=== PATIENT | male | born 1950 | race Caucasian/White ===

== ENCOUNTER → 2017-11-26 | Day surgery (SDC) | payer MEDICARE, OTHER ==
[~2017-11-26] VITALS: Ht 175.3 cm; Wt 87.6 kg
[~2017-11-26] MED LIST: ACETAMINOPHEN 500 MG CPLT PO PRN; ALLO100T PO; AMBI10TA PO; AMLO10TA2 PO; ATROPINE SULFATE 1% OPHT SOLN 5 ML BTL ONE; CHLORHEXIDINE GLUCONATE 2 % 1 PACK (2 CLOTHS) TOPICAL PRN; CYCLOPENTOLATE HCL 1% OPHT SOLN 2 ML BTL ONE; DEXAMETHASONE SOD PHOS 4 MG/ML VIAL ONE; DO NOT ADM ANY ANTICOAGULANT DRUGS PRN; EPINEPHrine HCL (1:1000) 1 MG/ML VIAL ONE; FAMOTIDINE 20 MG/2 ML VIAL ONE; FLUT50SP EACH NARE; GLYCOPYRROLATE 1 MG/5 ML SYRINGE IV PUSH ONE; INDO25CA PO; LACTATED RINGER'S 1000 ML IV PRN; LIDOCAINE HCL 1% PF 5 ML SYRINGE OTHER ONE; METO1TAB9 PO; METOPROLOL TARTRATE 25 MG TAB PO PRN; METOPROLOL TARTRATE 5 MG/5 ML VIAL ONE; MONT10TA4 PO; NEOSTIGMINE 5 MG/5 ML SYRINGE IV PUSH ONE; OMEP20TA93 PO; ONDANSETRON HCL 4 MG/2 ML VIAL IV ONE; POVIDONE IODINE 5% (ANTISEPSIS KIT) 4 APPLICATIONS EACH NARE PRN; PROPOFOL 200 MG/20 ML AMP IV ONE; ROCURONIUM INJ 50 MG/5 ML SYRINGE IV PUSH ONE; ROSU20 PO; SODIUM CHLORID 0.9% 500 ML IV PRN; TOBRAMYCIN/DEXAMETHASONE OPTH OINT 3.5 GM TUBE ONE; TRIAMCINOLONE ACETONIDE/PF 40 MG/ML OPTH VIAL ONE; VIAG100T PO; ceFAZolin INJ 1,000 MG VIAL ONE; oxyCODONE/ACETAMINOPHEN 5 MG/325 MG TAB PO PRN
[2017-11-26 10:14] LABS: BASOPHIL % 0.6 % (0.0-2.0); EOSINOPHIL # 0.1 TH/MM3 (0-0.4); EOSINOPHIL % 1.1 % (0.0-4.0); HEMATOCRIT 43.2 % (39.0-51.0); HEMOGLOBIN 14.5 GM/DL (13.0-17.0); LYMPH % 26.5 % (9.0-44.0); LYMPHOCYTE # 1.3 TH/MM3 (1.0-4.8); MEAN CELL VOLUME 96.3 FL (80.0-100.0); MEAN CORPUSCULAR HEMOGLOBIN 32.4 PG (27.0-34.0); MEAN CORPUSCULAR HGB CONC 33.7 % (32.0-36.0); MEAN PLATELET VOLUME 10.5 FL (7.0-11.0); MONO % 12.7 % (0.0-8.0); MONOCYTE # 0.6 TH/MM3 (0-0.9); NEUT % 59.1 % (16.0-70.0); PLATELET COUNT 126 TH/MM3 (150-450); RED BLOOD COUNT 4.48 MIL/MM3 (4.50-5.90); RED CELL DISTRIBUTION WIDTH 13.1 % (11.6-17.2); WHITE BLOOD COUNT 5.1 TH/MM3 (4.0-11.0)
[2017-11-26] MEDS: CYCLOPENTOLATE HCL 1% OPHT SOLN 2 ML BTL LEFT EYE SCH ×3 (10:15→10:45)
[2017-11-26] MEDS: TROPICAMIDE 1% OPHT SOLN 15 ML BTL LEFT EYE SCH ×3 (10:15→10:45)
[2017-11-26] MEDS: ATROPINE SULFATE 1% OPHT SOLN 5 ML BTL LEFT EYE SCH ×3 (10:15→10:45)
[2017-11-26] MEDS: PHENYLEPHRINE HCL 2.5% OPTH SOLN 2 ML BTL LEFT EYE SCH ×3 (10:15→10:45)
--- NOTE | 2017-11-26 14:20 | MP ---
cc: Leatha Rapp MD DATE OF OPERATION: 11/26/2017 PREOPERATIVE DIAGNOSIS: Rhegmatogenous retinal detachment with multiple breaks, left eye. POSTOPERATIVE DIAGNOSIS: Rhegmatogenous retinal detachment with multiple breaks, left eye. PROCEDURE PERFORMED: Trans-pars plana vitrectomy with laser retinopexy and gas fluid exchange, left eye. SURGEON: Leatha Rapp MD ANESTHESIA: General endotracheal. INDICATIONS: Mr. Mcdaniel is a gentleman who presented yesterday with a macula-on retinal detachment in the inferior nasal quadrant with multiple breaks within the detachment and also another break at approximately 2 o'clock outside of the detachment. The findings were explained to the patient, as well as the need for surgery. He wished to proceed. Informed consent was obtained. No guarantee was made as to visual outcome. DESCRIPTION OF PROCEDURE: The patient was brought to [facility] operating room 1 on the [facility]. Appropriate anesthesia monitoring devices were applied, and he was placed under general anesthesia using an endotracheal tube due to his gastric reflux. The left eye was then treated in the areas of non-detachment with the laser indirect ophthalmoscope with a power of 300 milliwatts and 0.15 seconds exposure. Next, the left eye was prepped and draped in the usual and sterile way. A lid speculum was placed. At this point, an appropriate timeout was called with the team agreeing to the proposed surgical procedure and surgical site. The microscope was brought around and adjusted. A lighted infusion cannula was placed at approximately 3 o'clock and verified to be in the posterior chamber. Two additional valved trocar cannulas were placed at 12 and 2 o'clock. A small amount of Kenalog was injected in the eye for visualization of the vitreous. Using a flat contact lens, a Core vitrectomy was then carried out. Next, using the Biome wide angle viewing system, a more peripheral vitrectomy was carried out including scleral depression. The main tear was at approximately 8 o'clock and the flap of it was amputated purposely during the vitrectomy. A small tear was seen just inferior to it and another one seen just superior to it. The detachment went from approximately 6-9 o'clock into the equatorial area. Once the vitrectomy had been carried out, a soft tipped linear extrusion needle was placed to drain subretinal fluid over the main tear while an air-fluid exchange was performed. Once the air-fluid exchange was performed, the retina in the infratemporal quadrant was flat and additional laser retinopexy were placed around the tears. A total of 2396 laser spots were placed with a power of 300-350 milliwatts and 0.15 second exposure. The air was then exchanged out for a 15% mixture of C3F8 gas. The cannulas were then removed, one by one with a 7-0 Vicryl interrupted suture at each sclerostomy site to make sure the wound was closed as the eye had been very myopic and was somewhat floppy. Atropine drops were placed on the cornea, followed by subconjunctival injections of Ancef 125 mg in 0.5 mL and Decadron 2 mg in 0.5 mL. The lid speculum was removed. The patient was undraped and TobraDex ointment was placed on the cornea. The left eye was then patched and shielded, and the patient had the endotracheal tube removed in the room and was returned to recovery area in good condition, lying on his left side. MD BARB Blankenship/JESSICA , 01:34 PM , 02:20 PM
--- NOTE | 2017-11-26 15:13 | EKG ---
Date Performed: 11/26/2017 Time Performed: 09:12:26 PTAGE: 67 years EKG: Sinus rhythm POSSIBLE RIGHT VENTRICULAR CONDUCTION DELAY BORDERLINE ECG NO PREVIOUS TRACING DOCTOR: Marleny Barnard Interpretating Date/Time 11/26/2017 15:12:01
[2017-11-26 15:20] VITALS: BP 145/69; PULSE 84; RESP 14; TEMP 97.2; O2SAT 93
== END | disposition home or self-care (01) ==
LOC: HSDC 08:38
PROVIDERS: ATTEND Ophthalmology
DX: H33.022 Retinal detachment with multiple breaks, left eye (principal); I10 Essential (primary) hypertension
CPT/HCPCS: 00145; 67110; 85025; 93005; J0171; J0690; J1100; J2405; J2710; J3010; J3300; J7120